=== PATIENT | female | born 1950 | race Native Hawaiian/Other Pacific Islander ===

== ENCOUNTER 2024-09-25 08:29 | Emergency (ER) | payer MEDICARE, MEDICAID, SELFPAY ==
[2024-09-25 08:40] VITALS: BP 158/72; PULSE 65; RESP 18; TEMP 36.6; O2SAT 96; BMI 22.3
--- NOTE | 2024-09-25 08:42 | XR_ITS ---
Examination: Left femur 2 views Technique one AP lateral left femur 2 views Exam date and time: September 25, 2024 0848 hrs. Indications: Patient fell 2 months ago with injury to the femur, femur pain Findings: Moderate osteopenia Moderate narrowing hip joint No hip fracture or dislocation Shaft of the femur intact Impression: No fracture
--- NOTE | 2024-09-25 08:46 | PD.EDADULT ---
ED General RME/HPI General Chief complaint: General Adult/Misc Complain Stated complaint: LLE HURTING FOR 2 WKS Time Seen by Provider: 09/25/24 08:35 Source: patient Arrival date/time: 09/25/24 08:29 74-year-old female with a history of hyperlipidemia, hypertension presents to the emergency room with a chief complaint of left thigh tenderness and pain x 2 weeks. Patient states she had a ground-level fall that occurred 2 weeks ago and since then her pain has not gone away. Mode of arrival: ambulatory Limitations: no limitations Related Data Home Medications ?Medication ?Instructions ?Recorded ?Confirmed levothyroxine 88 mcg tablet 88 mcg PO QDAY 11/15/17 03/28/24 (Synthroid) omeprazole 40 mg capsule,delayed 40 mg PO QDAY 11/15/17 03/28/24 release atorvastatin 80 mg tablet 80 mg PO QDAY 04/16/21 03/28/24 carvedilol 12.5 mg tablet 12.5 mg PO BID 04/16/21 03/28/24 aspirin 81 mg chewable tablet 81 mg PO QDAY 03/28/24 03/28/24 metformin 850 mg tablet 850 mg PO 2XD 03/28/24 03/28/24 ranolazine 1,000 mg 1,000 mg PO 2XD 03/28/24 03/28/24 tablet,extended release,12 hr Previous Rx's ?Medication ?Instructions ?Recorded hydralazine 25 mg tablet 50 mg (2 x 25 mg) PO TID #90 tabs 04/01/24 nifedipine 30 mg tablet,extended 30 mg PO QDAY #30 tabs 04/01/24 release 24 hr sodium citrate-citric acid 500 30 ml PO BID #1,200 mL 04/01/24 mg-334 mg/5 mL oral solution ibuprofen 600 mg tablet 600 mg PO Q8H PRN fever or pain 09/25/24 #20 tabs Allergies Allergy/AdvReac Type Severity Reaction Status Date / Time No Known Allergies Allergy Verified 09/25/24 08:33 Review of Systems Review of Systems Systems Reviewed: All systems reviewed, normal except as documented Constitutional Constitutional: Reports system reviewed and no additional complaints, except as documented, Denies fatigue, Denies fever(s), Denies headache(s) and Denies weakness Eyes Eyes: Reports system reviewed and no additional complaints, except as documented, Denies blurry vision and Denies change in vision ENT Ears, Nose, Mouth, and Throat: Reports system reviewed and no additional complaints, except as documented, Denies otalgia, Denies headache(s), Denies nasal congestion, Denies throat swelling and Denies vertigo Cardiovascular Cardiovascular: Reports system reviewed and no additional complaints, except as documented, Denies chest pain, Denies dyspnea and Denies dyspnea on exertion Respiratory Respiratory: Reports system reviewed and no additional complaints, except as documented, Denies chest congestion, Denies cough, Denies dyspnea, Denies dyspnea on exertion and Denies wheezing Gastrointestinal Gastrointestinal: Reports system reviewed and no additional complaints, except as documented, Denies abdominal pain, Denies cramping, Denies nausea and Denies vomiting Genitourinary Genitourinary: Reports system reviewed and no additional complaints, except as documented Musculoskeletal Musculoskeletal: Reports system reviewed and no additional complaints, except as documented, Denies abnormal gait, Reports arthralgias, Denies back pain and Denies limited range of motion Integumentary/Breasts Skin/Breast: Reports system reviewed and no additional complaints, except as documented and Denies wounds Neurologic Neurologic: Reports system reviewed and no additional complaints, except as documented, Denies abnormal gait, Denies confusion, Denies headache(s), Denies lack of coordination, Denies vertigo and Denies weakness Psychiatric Psychiatric: Reports system reviewed and no additional complaints, except as documented, Denies anxiety, Denies confusion, Denies depression, Denies paranoia, Denies suicidal ideation and Denies tactile hallucinations Endocrine Endocrine: Reports system reviewed and no additional complaints, except as documented and Denies fatigue Hematologic/Lymphatic Hematologic/Lymphatic: Reports system reviewed and no additional complaints, except as documented and Denies lymphadenopathy Allergic/Immunologic Allergic/Immunologic: Reports system reviewed and no additional complaints, except as documented, Denies throat swelling, Denies urticaria and Denies wheezing Past Medical History Past Medical History NEUROLOGIC: Negative Neurological Disorders or Seizures CARDIAC: Positive Cardiac Disorders, Atrial Fibrillation, Heart Murmur, Hypercholesterolemia and Hypertension; Negative Congestive Heart Failure RESPIRATORY: Negative Chronic Obstructive Pulmonary Disease (COPD) or Asthma GASTROINTESTINAL: Positive Gastrointestinal Disorders and Gastroesophageal Reflux Disease; Negative Hepatitis GENITOURINARY: Negative Genitourinary Disorders or Renal Disease REPRODUCTIVE: Positive Previous Pregnancies; Negative Pelvic Inflammatory Disease MUSCULOSKELETAL: Positive Musculoskeletal Disorders and Arthritis ENT: Positive Cataracts ENDOCRINE: Positive Endocrine Disorders, Diabetes Mellitus Type 2 and Hypothyroidism; Negative Diabetes Mellitus Type 1 HEMATOLOGIC: Negative Blood Disorders or Sickle Cell Disease PSYCHO/SOCIAL: Positive Anxiety OTHER HISTORY: Positive Blood Transfusions, Radiation Therapy and Chicken Pox; Negative Hospitalization, Autoimmune Disease, Down Syndrome, Developmental Delay, Shingles, Falls, Blood Transfusion Reaction, Anesthesia Reactions, Organ Transplant, Chemotherapy, Hyperbaric Therapy, MRSA, VRSA, Vancomycin-Resistant Enterococci, Human Immunodeficiency Virus (HIV), Measles, Mumps, Rubella (Cymraes Measles), Pertussis, Clostridium Difficile or Cancer Family History FAMILY HISTORY: Positive Family Respiratory Disorders, Family Cardiac Disorders, Family Cancer and Family Surgery; Negative Family Psychiatric Problems, Family Gastrointestinal Problems or Family Anesthesia Reaction Surgical History SURGICAL: Positive Cardiac Surgery, Angiogram, Endocrine Surgery, Thyroidectomy, Ear Surgery and Hysterectomy; Negative Eye Surgery, Abdominal Surgery or Organ Transplant Social History SMOKING STATUS: Never smoker ED Exam General Limitations: Present no limitations General appearance: Present alert and in no apparent distress Head Head exam: Present atraumatic Eye Eye exam: Present normal appearance, PERRL and EOMI ENT ENT exam: Present normal exam, normal oropharynx and mucous membranes moist Neck Neck exam: Present normal inspection, full ROM and trachea midline Chest Chest inspection: Present normal inspection and symmetric chest wall rise Respiratory Respiratory exam: Present normal lung sounds bilaterally Cardiovascular Cardiovascular exam: Present regular rate, normal rhythm and normal heart sounds Abdominal Exam Abdominal exam: Present soft and normal bowel sounds Extremities Exam Extremities exam: Present normal inspection and full ROM Expanded Lower Extremity Exam Hip/Pelvis exam: Present normal inspection and full ROM; Absent tenderness or swelling Upper leg exam: Present tenderness; Absent full ROM or swelling Knee exam: Present normal inspection Lower leg exam: Present normal inspection Ankle exam: Present normal inspection Foot/toe exam: Present normal inspection Neurovascular/Tendon exam: Present normal capillary refill Gait: observed and limited by pain; negative unable to bear weight Back Exam Back exam: Present normal inspection and full ROM Neurological Exam Neurological exam: Present alert, oriented X3 and CN II-XII intact Psychiatric Psychiatric exam: Present normal affect and normal mood Skin Skin exam: Present warm, dry, intact and normal color Course Quality Measures none Orders Category Date Time Status XR femur LT 2V Stat Exams 09/25/24 08:42 Completed Vital Signs Vital signs: Vital Signs Temperature 97.9 F 09/25/24 08:40 Pulse Rate 65 09/25/24 08:40 Respiratory Rate 18 09/25/24 08:40 Blood Pressure 158/72 H 09/25/24 08:40 Pulse Oximetry (%) 96 09/25/24 08:40 Oxygen Delivery Method Room Air 09/25/24 08:40 [facility] Patient data External records reviewed:: [facility] previous records Clinical information provided by:: patient Social determinants that could affect healthcare access:: none Patient has the following chronic illnesses:: Hypertension, diabetes, hyperlipidemia How is presenting disease/condition affected by chronic disease/condition?: uneffected by Evaluation data The following diagnostics were reviewed and interpreted by me:: lab results and radiology exam(s) Lab and/or radiology exams considered but not ordered:: Labs and radiology exams considered and ordered Interpretation Summary: X-ray of the left femur-no acute fracture or dislocation Medications Medications considered but not ordered:: No medication given Medication administrations:: No medication given Consultations Consultation(s) initiated? (list below): No Diagnosis Differential Diagnosis ED Complaint MDM: Leg pain/femur fracture/femur dislocation/osteopenia Most likely diagnosis given after review of the tests above:: Osteopenia Admission Indicated Admission indicated?: not indicated Explain why admission is indicated or not indicated:: N/A Admission Request Was there a request for admission?: No Disposition Plan Disposition Plan: Discharge Discharge Attestation Discharge Attestation: The patient and all family members were given an opportunity to ask questions and understood the discharge instructions. Discharge instructions specifically effects, indications for sooner follow up or return to the emergency department, and the expected course of current diagnosis. Patient condition: Stable Medical Decision Making [facility] Narrative MDM Narrative: 74-year-old female with a history of hyperlipidemia, hypertension presents to the emergency room with a chief complaint of left thigh tenderness and pain x 2 weeks. Patient states she had a ground-level fall that occurred 2 weeks ago and since then her pain has not gone away. Patient is hemodynamically stable and in no apparent distress Physical examination shows tenderness and pain to the left thigh. The patient denies any left-sided hip pain she is able to ambulate but states she is having pain to her thigh. Patient states she had a ground-level fall that occurred 2 weeks ago and since then her pain has not gone away. Patient states she saw her primary care provider that told her he is going to order x-rays but she has not taken them at this point. There is no swelling or any numbness to the lower extremities. Patient denies any other complaints. X-ray of the left femur was completed and was negative for any acute fractures or dislocations. Patient was discharged and educated to follow-up with her primary care provider and return to the emergency room for any evidence of worsening signs or symptoms Differential Diagnosis Differential Diagnosis: Leg pain/femur fracture/femur dislocation/osteopenia Discharge Plan Plan Patient Disposition: HOME (Self Care) Disposition Comment: Stable Prescriptions/Referrals Prescriptions/Med Rec: New ibuprofen 600 mg tablet 600 mg PO Q8H PRN (Reason: fever or pain) Qty: 20 0RF No Action omeprazole 40 mg Capsule,Delayed Release(Dr/Ec) 40 mg PO QDAY levothyroxine [Synthroid] 88 MCG tablet 88 mcg PO QDAY atorvastatin 80 mg tablet 80 mg PO QDAY Patient Comments: TAKE 1 TABLET BY MOUTH EVERY DAY carvedilol 12.5 mg tablet 12.5 mg PO BID Patient Comments: TAKE 1 TABLET BY MOUTH TWICE A DAY aspirin 81 mg Tablet,Chewable 81 mg PO QDAY metformin 850 mg tablet 850 mg PO 2XD Patient Comments: TAKE 1 TABLET BY MOUTH TWICE A DAY ranolazine 1,000 mg tablet extended release 12 hr 1,000 mg PO 2XD sodium citrate-citric acid 500-334 mg/5 mL Solution 30 ml PO BID Qty: 1200 0RF nifedipine 30 mg Tablet Extended Release 24hr 30 mg PO QDAY Qty: 30 0RF hydralazine 25 mg Tablet 50 mg PO TID Qty: 90 0RF Referrals: Raul Solo MD [Primary Care Provider] - In 1 week Problem List Clinical Impression: Osteopenia of left thigh Patient/Caregiver Discharge Instructions Additional Instructions: Please follow-up with your primary care provider in the next 24 to 48 hours. The x-ray of your left thigh was negative for any acute fractures or dislocations. For any evidence of worsening signs or symptoms return to the emergency room immediately Print Language: Welsh Stand Alone Forms: Malorie Award Info., Patient Portal Info Letter PA/FOOD SERVICE TRAY ATTENDANT Supervising Physician PA/FOOD SERVICE TRAY ATTENDANT Supervising Physician: Dr. Cooley
== END 2024-09-25 09:59 | disposition home or self-care (01) ==
PROVIDERS: Emergency Provider Emergency Medicine; PCP Family Medicine
DX: M85.852 Other specified disorders of bone density and structure, left thigh (principal); I10 Essential (primary) hypertension; E78.5 Hyperlipidemia, unspecified
CPT/HCPCS: 73552; 99283

== ENCOUNTER → 2025-05-14 | Outpatient (CLI) | payer MEDICARE, MEDICAID, SELFPAY ==
--- NOTE | 2025-05-14 12:00 | XR_ITS ---
Examination: Bone densitometry Date and time of exam: Good May 14, 2025, 1140 hours INDICATIONS: Hysterectomy age 49 vitamin D3 minus levothyroxine 20 years, thyroid carcinoma history, personal history of osteopenia Technique: Lumbar spine and hip total bone mineralization values of an calculated. Peak reference and age match control results have been displayed. Findings: Lumbar spine total bone mineralization is 0.880 gm/cm2. This is 1.5 standard deviations below peak reference. This is 0.9 standard deviations above age-matched controls. Hip total bone mineralization is 0.710 gm/cm2 This is 1.9 standard deviations below peak reference. This is 0.1 standard deviations below age-matched controls Impression: There is osteopenia based on lumbar spine measurements. There is osteoporosis based on hip measurements Lumbar mineralization is increased 7.4% compared with May 12, 2023 Hip mineralization is decreased 1.7% compared with May 12, 2023
== END | disposition home or self-care (01) ==
LOC: CDIM 11:12
PROVIDERS: PCP Family Medicine; Referring Provider Family Medicine; Visit Provider Family Medicine
DX: M85.88 Other specified disorders of bone density and structure, other site (principal); M81.0 Age-related osteoporosis without current pathological fracture
CPT/HCPCS: 77080